=== PATIENT | female | born 1980 | race Caucasian/White ===

== ENCOUNTER 2022-05-20 11:03 | Outpatient (CLI) | payer OTHER | END 2022-05-20 23:59 | disposition critical access hospital (66) | LOC: EMS 11:03 | DX: T78.3XXA Angioneurotic edema, initial encounter (principal); R53.83 Other fatigue | CPT/HCPCS: A0425; A0427 ==

== ENCOUNTER 2022-05-20 11:19 | Emergency (ER) | payer OTHER ==
--- NOTE | 2022-05-20 11:26 | ED Physician Documentation ---
History of Present Illness - Stated complaint Stated Complaint: ALLERGIC REACTION - Additonal information Additional information: Patient is 41-year-old female presenting to the emergency department with altered mental status and concern for allergic reaction. Brought in by EMS after being found obtunded and minimally responsive at home. Recent hospitalization for necrotizing fasciitis of the right buttock requiring surgical debridement. Patient is receiving ongoing wound care via [facility]. Family reports that they believe she may have received a new antibiotic last night. They state that she is currently receiving both Rocephin and Flagyl through her PICC line. They state that she woke up this morning and did seem somewhat lethargic but was communicative however at approximately 1030 they found her sitting at bedside not responding which is what prompted them to come to the emergency department. EMS gave 50 mg IM Benadryl and 0.3 epinephrine prior to arrival. They report blood sugars being within normal limits. They deny any respiratory distress, tachycardia, skin eruption or hypotension on their evaluation. Review of Systems Unable to obtain: Unresponsive PD PAST MEDICAL HISTORY - Present Medications Home Medications: Ambulatory Orders Medication Instructions Recorded Confirmed Albuterol Sulfate 3 ml IH Q6HR PRN 05/20/22 05/20/22 Albuterol Sulfate [Proair Hfa 1 - 2 puffs INH Q4H PRN 05/20/22 05/20/22 Inhaler] Ascorbic Acid [Vitamin C] 500 mg ORAL BID 05/20/22 05/20/22 Cetirizine [ZyrTEC] 10 mg PO DAILY 05/20/22 05/20/22 Citalopram Hydrobromide 40 mg PO DAILY 05/20/22 05/20/22 [Citalopram HBr] Ferrous Sulfate 325 mg PO DAILY 05/20/22 05/20/22 Insulin Aspart [Novolog] 100 unit SQ TIDWM 05/20/22 05/20/22 Insulin Glargine [Lantus Solostar] 30 unit SQ DAILY PM 05/20/22 05/20/22 Ipratropium/Albuterol [Duoneb] 3 ml INH Q6H 05/20/22 05/20/22 Lactobacillus Rhamnosus GG 1 cap PO DAILY 05/20/22 05/20/22 [Culturelle] Melatonin/Pyridoxine [Melatonin 5 1 each PO HS PRN 05/20/22 05/20/22 mg Tablet] Sennosides/Docusate Sodium 1 each PO BID 05/20/22 05/20/22 [Senna-S 8.6-50 mg Tablet] Sodium Hypochlorite [Dakin's] 1 applic TOP BID 05/20/22 05/20/22 Zolpidem [Ambien] 5 mg PO HS PRN 05/20/22 05/20/22 metroNIDAZOLE [Flagyl] 500 mg PO TID 05/20/22 05/20/22 oxyCODONE/ACET 5/325 [Percocet 5 1 each PO Q4HR PRN 05/20/22 05/20/22 mg/325 mg] polyethylene glycoL 3350 17 gm PO DAILY PRN 05/20/22 05/20/22 [Polyethylene Glycol 3350] - Allergies Allergies/Adverse Reactions: Allergies Allergy/AdvReac Type Severity Reaction Status Date / Time aspirin Allergy Unknown Verified 05/20/22 13:18 hydrocodone Allergy Unknown Verified 05/20/22 13:18 PD ED PE NORMAL - Vitals Vital signs reviewed: Yes - General General: No acute distress - HEENT HEENT: Atraumatic, PERRL, EOMI, Ears normal, Moist mucous membranes, Pharynx benign - Neck Neck: Supple, no meningeal sign, No bony TTP, No adenopathy, Thyroid normal, No JVD - Cardiac Cardiac: RRR, No gallop, Strong equal pulses - Respiratory Respiratory: Clear bilaterally - Abdomen Abdomen: Normal bowel sounds, Non tender, Non distended, No organomegaly - Female Female : Other (There is induration and discoloration of the skin over the right labia majora.) - Rectal Rectal: Deferred - Back Back: No CVA TTP - Extremities Extremities: Other (Surgical site is identified in the right buttock. Extends into the subcutaneous fat. There is dusky skin around the site.) - Neuro Neuro: finance advisor 2-12 intact, No motor deficit, No sensory deficit, Other (Patient minimally responsive to stimuli. Appears to be maintaining her airway appropriately.) Results - Vitals Vitals: Vital Signs - 24 hr 05/20/22 05/20/22 05/20/22 11:27 12:50 13:07 Temperature 36.3 C L Heart Rate 77 77 Respiratory 10 L 19 Rate Blood Pressure 132/68 H 120/67 O2 Saturation 99 99 08/28/22 08/28/22 08/28/22 13:41 14:57 15:00 Temperature 37.2 C Heart Rate 76 75 Respiratory 20 22 Rate Blood Pressure 137/77 H 147/74 H O2 Saturation 100 93 94 05/20/22 05/20/22 15:47 17:00 Temperature Heart Rate 72 72 Respiratory 18 18 Rate Blood Pressure 141/77 H 142/78 H O2 Saturation 93 97 Oxygen O2 Source Room air - EKG (time done) 1130 Rate: Rate (enter#) (79) Rhythm: NSR [place]: Normal Intervals: Normal DC QRS: Normal Ischemia: Normal ST segments Compare to prior EKG: Unchanged from prior EKG - Labs Labs: Laboratory Tests 05/20/22 05/20/22 05/20/22 11:40 11:40 11:40 WBC 7.1 RBC 3.24 L Hgb 9.0 L Hct 28.3 L MCV 87.3 MCH 27.8 MCHC 31.8 L RDW 15.7 H Plt Count 350 MPV 9.1 Neut # (Auto) 4.9 Lymph # (Auto) 1.5 [place] # (Auto) 0.6 Eos # (Auto) 0.1 Baso # (Auto) 0.0 Absolute Nucleated RBC 0.00 Nucleated RBC % 0.0 PT 13.4 H INR 1.2 VBG pH VBG pCO2 VBG pO2 VBG HCO3 VBG Total CO2 VBG O2 Saturation VBG Base Excess Sodium 138 Potassium 3.7 Chloride 98 L Carbon Dioxide 28 Anion Gap 12.0 BUN 13 Creatinine 0.8 Estimated GFR (MDRD) 80 L Glucose 350 H Lactic Acid Calcium 8.4 L Magnesium 1.6 L Total Bilirubin 0.6 AST 14 ALT 13 Alkaline Phosphatase 96 Total Creatine Kinase 22 Troponin I High Sens Total Protein 6.4 L Albumin 2.0 L Globulin 4.4 H Albumin/Globulin Ratio 0.5 L Lipase 19 L TSH Urine Color Urine Clarity Urine pH Ur Specific [place] Urine Protein Urine Glucose (UA) Urine Ketones Urine Occult Blood Urine Nitrite Urine Bilirubin Urine Urobilinogen Ur Leukocyte Esterase Ur Microscopic Review Urine Culture Comments Nasal Adenovirus (PCR) Nasal B. parapertussis DNA (PCR) Nasal Coronavir 229E PCR Nasal Coronavir HKU1 PCR Nasal Coronavir NL63 PCR Nasal Coronavir OC43 PCR Nasal Enterovir/Rhinovir PCR Nasal Influenza B PCR Nasal Influenza A PCR Nasal Parainfluen 1 PCR Nasal Parainfluen 2 PCR Nasal Parainfluen 3 PCR Nasal Parainfluen 4 PCR Nasal RSV (PCR) Nasal B.pertussis DNA PCR Nasal C.pneumoniae (PCR) [place] Human Metapneumo PCR Nasal M.pneumoniae (PCR) Nasal SARS-CoV-2 (PCR) Salicylates < 6.0 Urine Opiates Screen Ur Oxycodone Screen Urine Methadone Screen Ur Propoxyphene Screen Acetaminophen < 10 L Ur Barbiturates Screen Ur Tricyclics Screen Ur Phencyclidine Scrn Ur Amphetamine Screen U Methamphetamines Scrn U Benzodiazepines Scrn Urine Cocaine Screen U Cannabinoids Screen Ethyl Alcohol < 5.0 Serum Ketones SMALL H 05/20/22 05/20/22 05/20/22 11:40 11:40 11:40 WBC RBC Hgb Hct MCV MCH MCHC RDW Plt Count MPV Neut # (Auto) Lymph # (Auto) [place] # (Auto) Eos # (Auto) Baso # (Auto) Absolute Nucleated RBC Nucleated RBC % PT INR VBG pH VBG pCO2 VBG pO2 VBG HCO3 VBG Total CO2 VBG O2 Saturation VBG Base Excess Sodium Potassium Chloride Carbon Dioxide Anion Gap BUN Creatinine Estimated GFR (MDRD) Glucose Lactic Acid 1.2 Calcium Magnesium Total Bilirubin AST ALT Alkaline Phosphatase Total Creatine Kinase Troponin I High Sens 3.8 Total Protein Albumin Globulin Albumin/Globulin Ratio Lipase TSH 5.94 H Urine Color Urine Clarity Urine pH Ur Specific [place] Urine Protein Urine Glucose (UA) Urine Ketones Urine Occult Blood Urine Nitrite Urine Bilirubin Urine Urobilinogen Ur Leukocyte Esterase Ur Microscopic Review Urine Culture Comments Nasal Adenovirus (PCR) Nasal B. parapertussis DNA (PCR) Nasal Coronavir 229E PCR Nasal Coronavir HKU1 PCR Nasal Coronavir NL63 PCR Nasal Coronavir OC43 PCR Nasal Enterovir/Rhinovir PCR Nasal Influenza B PCR Nasal Influenza A PCR Nasal Parainfluen 1 PCR Nasal Parainfluen 2 PCR Nasal Parainfluen 3 PCR Nasal Parainfluen 4 PCR Nasal RSV (PCR) Nasal B.pertussis DNA PCR Nasal C.pneumoniae (PCR) Kem[place] Human Metapneumo PCR Nasal M.pneumoniae (PCR) Nasal SARS-CoV-2 (PCR) Salicylates Urine Opiates Screen Ur Oxycodone Screen Urine Methadone Screen Ur Propoxyphene Screen Acetaminophen Ur Barbiturates Screen Ur Tricyclics Screen Ur Phencyclidine Scrn Ur Amphetamine Screen U Methamphetamines Scrn U Benzodiazepines Scrn Urine Cocaine Screen U Cannabinoids Screen Ethyl Alcohol Serum Ketones 05/20/22 05/20/22 05/20/22 11:40 13:20 16:40 WBC RBC Hgb Hct MCV MCH MCHC RDW Plt Count MPV Neut # (Auto) Lymph # (Auto) [place] # (Auto) Eos # (Auto) Baso # (Auto) Absolute Nucleated RBC Nucleated RBC % PT INR VBG pH 7.493 H VBG pCO2 38.2 L VBG pO2 125.8 H VBG HCO3 28.7 H VBG Total CO2 29.8 H VBG O2 Saturation 99.0 H VBG Base Excess 5.1 H Sodium Potassium Chloride Carbon Dioxide Anion Gap BUN Creatinine Estimated GFR (MDRD) Glucose Lactic Acid Calcium Magnesium Total Bilirubin AST ALT Alkaline Phosphatase Total Creatine Kinase Troponin I High Sens Total Protein Albumin Globulin Albumin/Globulin Ratio Lipase TSH Urine Color Urine Clarity Urine pH Ur Specific [place] Urine Protein Urine Glucose (UA) Urine Ketones Urine Occult Blood Urine Nitrite Urine Bilirubin Urine Urobilinogen Ur Leukocyte Esterase Ur Microscopic Review Urine Culture Comments Nasal Adenovirus (PCR) NOT DETECTED Nasal B. parapertussis DNA (PCR) NOT DETECTED Nasal Coronavir 229E PCR NOT DETECTED Nasal Coronavir HKU1 PCR NOT DETECTED Nasal Coronavir NL63 PCR NOT DETECTED Nasal Coronavir OC43 PCR NOT DETECTED Nasal Enterovir/Rhinovir PCR NOT DETECTED Nasal Influenza B PCR NOT DETECTED Nasal Influenza A PCR NOT DETECTED Nasal Parainfluen 1 PCR NOT DETECTED Nasal Parainfluen 2 PCR NOT DETECTED Nasal Parainfluen 3 PCR NOT DETECTED Nasal Parainfluen 4 PCR NOT DETECTED Nasal RSV (PCR) NOT DETECTED Nasal B.pertussis DNA PCR NOT DETECTED Nasal C.pneumoniae (PCR) NOT DETECTED Kemar Human Metapneumo PCR NOT DETECTED Nasal M.pneumoniae (PCR) NOT DETECTED Nasal SARS-CoV-2 (PCR) NOT DETECTED Salicylates Urine Opiates Screen NEGATIVE Ur Oxycodone Screen NEGATIVE Urine Methadone Screen NEGATIVE Ur Propoxyphene Screen NEGATIVE Acetaminophen Ur Barbiturates Screen NEGATIVE Ur Tricyclics Screen NEGATIVE Ur Phencyclidine Scrn NEGATIVE Ur Amphetamine Screen NEGATIVE U Methamphetamines Scrn NEGATIVE U Benzodiazepines Scrn NEGATIVE Urine Cocaine Screen NEGATIVE U Cannabinoids Screen NEGATIVE Ethyl Alcohol Serum Ketones 05/20/22 16:40 WBC RBC Hgb Hct MCV MCH MCHC RDW Plt Count MPV Neut # (Auto) Lymph # (Auto) [place] # (Auto) Eos # (Auto) Baso # (Auto) Absolute Nucleated RBC Nucleated RBC % PT INR VBG pH VBG pCO2 VBG pO2 VBG HCO3 VBG Total CO2 VBG O2 Saturation VBG Base Excess Sodium Potassium Chloride Carbon Dioxide Anion Gap BUN Creatinine Estimated GFR (MDRD) Glucose Lactic Acid Calcium Magnesium Total Bilirubin AST ALT Alkaline Phosphatase Total Creatine Kinase Troponin I High Sens Total Protein Albumin Globulin Albumin/Globulin Ratio Lipase TSH Urine Color YELLOW Urine Clarity CLEAR Urine pH 6.0 Ur Specific [place] 1.010 Urine Protein NEGATIVE Urine Glucose (UA) >=1000 H Urine Ketones 15 H Urine Occult Blood NEGATIVE Urine Nitrite NEGATIVE Urine Bilirubin NEGATIVE Urine Urobilinogen 0.2 (NORMAL) Ur Leukocyte Esterase NEGATIVE Ur Microscopic Review NOT INDICATED Urine Culture Comments NOT INDICATED Nasal Adenovirus (PCR) Nasal B. parapertussis DNA (PCR) Nasal Coronavir 229E PCR Nasal Coronavir HKU1 PCR Nasal Coronavir NL63 PCR Nasal Coronavir OC43 PCR Nasal Enterovir/Rhinovir PCR Nasal Influenza B PCR Nasal Influenza A PCR Nasal Parainfluen 1 PCR Nasal Parainfluen 2 PCR Nasal Parainfluen 3 PCR Nasal Parainfluen 4 PCR Nasal RSV (PCR) Nasal B.pertussis DNA PCR Nasal C.pneumoniae (PCR) [place] Human Metapneumo PCR Nasal M.pneumoniae (PCR) Nasal SARS-CoV-2 (PCR) Salicylates Urine Opiates Screen Ur Oxycodone Screen Urine Methadone Screen Ur Propoxyphene Screen Acetaminophen Ur Barbiturates Screen Ur Tricyclics Screen Ur Phencyclidine Scrn Ur Amphetamine Screen U Methamphetamines Scrn U Benzodiazepines Scrn Urine Cocaine Screen U Cannabinoids Screen Ethyl Alcohol Serum Ketones PD MEDICAL DECISION MAKING - ED course Complexity details: reviewed old records, reviewed results, re-evaluated patient, d/w family, d/w dietitian consultant ED course: Patient is 41-year-old female presenting to the emergency department with altered mentation. He did receive IM Benadryl and epinephrine prior to arrival as there was some concern that this could have been an allergic reaction however on arrival to the emergency department no indications of acute anaphylaxis or allergic reaction was appreciated on exam. Patient arrived in an obtunded state, with only intermittent episodes of following commands or responding to speech. Comprehensive labs were obtained which were generally within normal limits or nonactionable. Patient was given a small dose of Narcan with no change in her mentation. CT scans of the head demonstrated possible age- indeterminate infarcts however CT scans of the abdomen and pelvis were significant for what appears to be worsening necrotizing fasciitis now with spread into the perineum and suprapubic area. Started vancomycin, clindamycin and Flagyl here in the ED. Case was discussed with the surgical service at [facility] as well as with the hospitalist service. At this time the hospital service graciously accepts the patient and she will be transferred from our facility to [facility] via [facility] for further evaluation and treatment. - Critical Care Time Includes: Direct patient care, Review records, Reassess patient, Document care, Coordinate care, Medical consult Data interpretation: Labs Departure - Departure Disposition: 02 Transfer Acute Care Hosp Clinical Impression: Necrotizing fasciitis, Encephalopathy
[2022-05-20 11:44] LABS: VBG PH 7.493 (7.31-7.41)
[2022-05-20 11:45] LABS: VBG BASE EXCESS 5.1 mmol/L (-2 - +2); VBG HCO3 28.7 mmol/L (23-28); VBG PCO2 38.2 mmHg (41-51); VBG PO2 125.8 mmHg (25-47); VBG TOTAL CO2 29.8 mmol/L (24-29)
[2022-05-20 11:46] LABS: BASOPHILS % (AUTO) 0.6 %; EOSINOPHILS # (AUTO) 0.1 10^3/uL (0.0-0.7); EOSINOPHILS % (AUTO) 1.1 %; HCT - HEMATOCRIT 28.3 % (37.0-47.0); LYMPHOCYTES # (AUTO) 1.5 10^3/uL (1.5-3.5); LYMPHOCYTES % (AUTO) 21.2 %; MEAN CORPUSCULAR HEMOGLOBIN 27.8 pg (27.0-31.0); MEAN CORPUSCULAR HGB CONC 31.8 g/dL (32.0-36.0); MEAN CORPUSCULAR VOLUME 87.3 fL (81.0-99.0); MEAN PLATELET VOLUME 9.1 fL (7.9-10.8); MONOCYTES # (AUTO) 0.6 10^3/uL (0.0-1.0); MONOCYTES % (AUTO) 8.1 %; NEUTROPHILS # (AUTO) 4.9 10^3/uL (1.5-6.6); NEUTROPHILS % (AUTO) 68.7 %; PLT - PLATELET COUNT 350 10^3/uL (130-450); RED BLOOD COUNT 3.24 10^6/uL (4.20-5.40); RED CELL DISTRIBUTION WIDTH 15.7 % (12.0-15.0); WHITE BLOOD COUNT 7.1 x10^3/uL (4.8-10.8)
[2022-05-20 12:03] LABS: ACETAMINOPHEN < 10 ug/mL (10-30); ALBUMIN/GLOBULIN RATIO 0.5 (1.0-2.2); ALKALINE PHOSPHATASE 96 IU/L (42-121); ALT ALANINE AMINOTRANSFERASE 13 IU/L (10-60); AST ASPARTATE AMINOTRANSFERASE 14 IU/L (10-42); BILIRUBIN,TOTAL 0.6 mg/dL (0.2-1.0); BUN - BLOOD UREA NITROGEN 13 mg/dL (6-20); CALCIUM 8.4 mg/dL (8.5-10.3); CARBON DIOXIDE - CO2 28 mmol/L (21-32); CHLORIDE 98 mmol/L (101-111); CK- CREATINE KINASE 22 IU/L (22-269); CREATININE 0.8 mg/dL (0.4-1.0); ETOH - ETHANOL < 5.0 mg/dL; GFR - MDRD 80 (>89); GLUCOSE 350 mg/dL (70-100); LIPASE 19 U/L (22-51); MAGNESIUM 1.6 mg/dL (1.7-2.8); POTASSIUM 3.7 mmol/L (3.5-5.0); SALICYLATE < 6.0 mg/dL; SODIUM 138 mmol/L (135-145); TOTAL PROTEIN 6.4 g/dL (6.7-8.2)
[2022-05-20 12:11] LABS: KETONES, SERUM (ACETEST) SMALL (NEGATIVE)
[2022-05-20 12:13] LABS: INR 1.2 (0.8-1.2); PT - PROTHROMBIN TIME 13.4 secs (9.9-12.6)
--- NOTE | 2022-05-20 12:14 | XRAY Report ---
PROCEDURE: Chest 1 View X-Ray INDICATIONS: chest pain TECHNIQUE: One view of the chest was acquired. COMPARISON: Correlation is made with the accompanying head CT, 05/12/2022. FINDINGS: Surgical changes and devices: None. Lungs and pleura: Low lung volumes can be seen, causing a crowded appearance to the lung markings. G eneralized interstitial prominence can be seen. On the semiupright images, no large pneumothorax can be seen. There is minimal blunting of the costophrenic angles. Mediastinum: There is moderate cardiomegaly. Bones and chest wall: No suspicious bony lesions. Overlying soft tissues appear unremarkable. IMPRESSION: Low lung volumes with interstitial prominence and likely small pleural effusions. There is mild car diomegaly. Please correlate with fluid overload versus early/mild CHF. Please consider a short-term follow-up 2 view chest series (performed in deep inspiration) for furthe r evaluation. Reviewed by: August Karimi MD on 05/20/2022 11:12 AM ETIENNE Approved by: August Karimi MD on 05/20/2022 11:12 AM ETIENNE Station ID: [id number]
--- NOTE | 2022-05-20 12:17 | CT Report ---
PROCEDURE: HEAD WO INDICATIONS: AMS TECHNIQUE: Noncontrast 4.5 mm thick angled axial sections acquired from the foramen magnum to the vertex. For r adiation dose reduction, the following was used: automated exposure control, adjustment of mA and/or kV according to patient size. COMPARISON: Correlation is made with the accompanying chest plain film, 05/12/2022. FINDINGS: Image quality: Excellent. CSF spaces: Basal cisterns are patent. No extra-axial fluid collections. Ventricles are normal in size and shape. Brain: Along the periphery of the right cerebral hemisphere, there are several areas of cystic appear ing volume loss, which are worst on series 3 image images 10, 12, and 16. Within the inferior lateral right cerebellum, there is also cystic appearing volume loss. An apparent lacunar infarct can be see n involving the right head of the caudate nucleus, as on series 3 image 15. Skull and face: Calvarium and visualized facial bones are intact, without suspicious lesions. Sinuses: Focal moderate mucosal thickening is seen involving the left maxillary sinus. Slow-uw-ycgqfs te mucosal thickening is seen within the posterior sphenoid sinuses. The paranasal sinuses are otherw ise unremarkable. No significant abnormal fluid can be seen within the mastoid air cells. 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 If it would be helpful for clinical management decision making, please consider a dedicated brain MRI (without and with contrast) for further evaluation (assuming that there is no contraindication). Paranasal sinus disease is also incidentally noted. Reviewed by: August Karimi MD on 05/20/2022 11:15 AM ETIENNE Approved by: August Karimi MD on 05/20/2022 11:15 AM ETIENNE Station ID: [id number]
[2022-05-20] MEDS ORDERED: NALOXONE 0.4 MG/ML VIAL IVP STA (14:25)
[2022-05-20 14:29] LABS: B. PARAPERTUSSIS- RESP PCR PAN NOT DETECTED; B. PERTUSSIS- RESP PCR PANEL NOT DETECTED; C. PNEUMONIAE- RESP PCR PANEL NOT DETECTED; CORONAVIRUS 229E-RESP PCR NOT DETECTED; CORONAVIRUS HKU1-RESP PCR NOT DETECTED; CORONAVIRUS NL63-RESP PCR NOT DETECTED; CORONAVIRUS OC43-RESP PCR NOT DETECTED; HUMAN METAPNEUMOVIRUS NOT DETECTED; INFLUENZA A- RESP PCR PANEL NOT DETECTED; INFLUENZA B - RESP PCR PANEL NOT DETECTED; M. PNEUMONIAE- RESP PCR PANEL NOT DETECTED; PARAINFLUENZA VIRUS 1 NOT DETECTED; PARAINFLUENZA VIRUS 2 NOT DETECTED; PARAINFLUENZA VIRUS 3 NOT DETECTED; PARAINFLUENZA VIRUS 4 NOT DETECTED; RHINOVIRUS/ENTEROVIRUS NOT DETECTED; RSV- RESP PCR PANEL NOT DETECTED; SARS-CoV-2 -RESP PCR PANEL NOT DETECTED
[2022-05-20] MEDS ORDERED: SODIUM CHLORIDE 0.9% 1,000 ML IV STA (14:55)
--- NOTE | 2022-05-20 15:50 | CT Report ---
PROCEDURE: ANGIO CHEST W/WO INDICATIONS: AMS CONTRAST: IV CONTRAST: Optiray 320 ml: 100 PO CONTRAST: *NO PO CONTRAST TECHNIQUE: After the administration of intravenous contrast, 2 mm axial images were acquired from the pulmonary apices to the posterior costophrenic angles during the arterial phase. In addition, 1 mm lung kernel and 5 mm soft tissue kernel reconstructions were performed. 3-dimensional coronal oblique maximum int ensity projection (MIP) reformats, 8 mm axial MIP, and 5 mm coronal and sagittal MPR reformats were t hen performed through the thorax. For radiation dose reduction, the following was used: automated exp osure control, adjustment of mA and/or kV according to patient size. COMPARISON: Correlation is made with the accompanying imaging, 05/12/2022. FINDINGS: Image quality: Motion artifact is noted. Evaluation of the pulmonary arteries is limited by bolus timing. Pulmonary arteries: The density within the pulmonary arteries measures 200 Hounsfield units. Densit y measurements of greater than 250 are considered to be ideal for evaluation of pulmonary embolism. O n this study, no large or central pulmonary oblique and be seen. The pulmonary arteries do not appear enlarged. Lungs and pleura: There is a small right-sided pleural effusion and a small to moderate left-sided pl eural effusion. Mild dependent atelectasis can be seen. Mild areas of grand glass opacity are seen, w hich are primarily dependent. Mediastinum: Heart size is at the upper limits of normal, without pericardial effusion. No mediasti nal or hilar adenopathy. Thoracic aorta is normal in caliber and enhancement. Esophagus is normal i n caliber, without hiatal hernia. Bones and chest wall: No suspicious bony lesions. Ribs and thoracic spine appear intact throughout. Age-appropriate degenerative changes are seen. No axillary or supraclavicular adenopathy. Appare nt prior left hemilaminectomy. Generalized body wall edema can be seen. Abdomen: Visualized upper abdominal solid organs appear normal in the early arterial phase of enhanc ement. IMPRESSION: No large or central pulmonary embolism can be seen. Bilateral pleural effusions are seen, left larger than right. Anasarca. Incidental note is made of: Apparent prior left hemithyroidectomy Reviewed by: August Karimi MD on 05/20/2022 2:49 PM AKDT Approved by: August Karimi MD on 05/20/2022 2:49 PM ETIENNE Station ID: [id number]
--- NOTE | 2022-05-20 15:56 | CT Report ---
PROCEDURE: Abdomen/Pelvis W INDICATIONS: Recent nec-fasc left buttock CONTRAST: IV CONTRAST: Optiray 320 ml: 100 PO CONTRAST: *NO PO CONTRAST TECHNIQUE: After the administration of IV contrast, 5 mm thick sections acquired from the diaphragms to the symp hysis. 5 mm thick coronal and sagittal reformats were acquired. For radiation dose reduction, the f ollowing was used: automated exposure control, adjustment of mA and/or kV according to patient size. COMPARISON: Correlation is made with the accompanying imaging, 05/12/2022. FINDINGS: Image quality: Excellent. ABDOMEN: Lung bases: Bilateral pleural effusions are seen, left larger than right. Heart size is near the uppe r limits of normal. Solid organs: Liver and spleen are normal in size and enhancement. An accessory splenule is incide ntally noted along the hilum of the primary spleen. Gallbladder is relatively collapsed at the time of this study. Biliary system is non dilated. Pancreas enhances normally. No adrenal nodules. Kidneys demonstrate normal size and enhancement, without hydronephrosis. Peritoneum and bowel: Bowel loops demonstrate normal wall thickness and caliber. No free fluid or a ir. Nodes and vessels: No retroperitoneal or mesenteric adenopathy by size criteria. Aorta and inferior vena cava are normal in size. Miscellaneous: No ventral hernias. Generalized body wall edema is seen. Within the left anterior ab dominal wall, there is a low-density device seen superficially, as on series 6 image 66, which measur es up to 1.9 cm. PELVIS: Genitourinary: Bladder wall thickness is normal. The uterus demonstrates an unremarkable appearance for age. No adnexal masses are seen. Miscellaneous: Abnormal soft tissue irregularity with a skin lesion can be seen involving the medial right buttock. Soft tissue gas is also seen within the anterior right perineum, with soft tissue flui d. This process continues superiorly to also involve the right anterior abdominal wall musculature, a s on series 6 image 85. Bones: No suspicious bony lesions. No vertebral body compression fractures. Focal L2-L3 degenerati ve change is seen. Milder degenerative changes are seen elsewhere. IMPRESSION: Significant soft tissue infection, with soft tissue gas and skin breakdown involving the right medial buttock. Within the perineum there is also abnormal soft tissue fluid and soft tissue g as seen anteriorly and on the right, which continues superiorly along the right anterior abdominal wa ll musculature. Urgent surgical consultation is recommended. Bilateral pleural effusions are seen, left larger than right. There is anasarca. Incidental note is made of: Accessory splenule Focal L2-L3 degenerative change Low-density skin device implanted along the left inferior anterior abdominal wall Reviewed by: August Karimi MD on 05/20/2022 2:54 PM AKDT Approved by: August Karimi MD on 05/20/2022 2:54 PM AKDT Station ID: [id number]
[2022-05-20] MEDS ORDERED: CLINDAMYCIN 600 MG/50 ML 50 ML IV ONE (16:04)
[2022-05-20] MEDS ORDERED: metroNIDAZOLE 500 MG/100 ML 500 MG/100 ML BAG IV ONE (16:04)
[2022-05-20] MEDS ORDERED: VANCOMYCIN INJ 2 GM in SODIUM CHLORIDE 0.9% 500 ML IV ONE (16:30)
[2022-05-20 16:50] LABS: MUDS CUTOFF CONCENTRATIONS CUTOFF CONC BELOW:
[2022-05-20 16:51] LABS: BILIRUBIN,URINE NEGATIVE (NEGATIVE); GLUCOSE, URINE (UA) >=1000 mg/dL (NEGATIVE); KETONES,URINE (UA) 15 mg/dL (NEGATIVE); LEUKOCYTE ESTERASE, URINE NEGATIVE (NEGATIVE); NITRITE,URINE NEGATIVE (NEGATIVE); OCCULT BLOOD,URINE NEGATIVE (NEGATIVE); PROTEIN,URINE NEGATIVE (NEGATIVE); UROBILINOGEN,URINE 0.2 (NORMAL) E.U./dL (NORMAL)
[2022-05-20 16:52] LABS: CLARITY,URINE CLEAR (CLEAR)
[2022-05-20 17:01] LABS: AMPHETAMINE SCREEN,URINE NEGATIVE (NEGATIVE); BENZODIAZEPINES SCREEN, URINE NEGATIVE (NEGATIVE); COCAINE SCREEN URINE NEGATIVE (NEGATIVE); METHAMPHETAMINES SCREEN, URINE NEGATIVE (NEGATIVE); OPIATE SCREEN, URINE NEGATIVE (NEGATIVE); THC CANNABINOID SCREEN, URINE NEGATIVE (NEGATIVE); TRICYCLIC ANTIDEPRESSANT,URINE NEGATIVE (NEGATIVE)
[2022-05-20 17:02] LABS: BARBITURATE SCREEN,UR NEGATIVE (NEGATIVE); METHADONE SCREEN, URINE NEGATIVE (NEGATIVE); OXYCODONE SCREEN, URINE NEGATIVE (NEGATIVE); PROPOXYPHENE SCREEN, URINE NEGATIVE (NEGATIVE)
[2022-05-20 19:46] VITALS: BP 137/73
== END 2022-05-20 19:48 | disposition short-term general hospital (02) ==
LOC: ED 11:19
DX: M72.6 Necrotizing fasciitis (principal); G93.40 Encephalopathy, unspecified
CPT/HCPCS: 36415; 51702; 70450; 71045; 71275; 74177; 80053; 80306; 80307; 80320; 80329; 81003; 82009; 82550; 82803; 83605; 83690; 83735; 84443; 84484; 85025; 85610; 87040; 87633; 93005; 96365; 96366; 96368; 96375; 99285; 99291; J3370; Q9967; 81001; 87086